=== PATIENT | female | born 1975 | race Caucasian/White ===

== ENCOUNTER 2017-01-11 16:43 | Emergency (ER) | payer SELFPAY ==
[~2017-01-11] VITALS: Ht 165.1 cm; Wt 65.0 kg
[2017-01-11 17:43] LABS: HEMATOCRIT 37.2 % (37.0-47.0); IMMATURE GRANULOCYTES 0.3 % (0.0-1.0); MEAN CELL VOLUME 93.7 fL CALC (80.0-100.0); MEAN CORPUSCULAR HGB 32.7 pG CALC (26.0-32.0); MEAN CORPUSCULAR HGB CONC 34.9 g/L CALC (32.0-36.0); NEUT# 7.9 thou/uL (2.00-7.15); RED BLOOD COUNT 3.97 mill/uL (4.20-5.60); RED CELL DISTRI WIDTH 14.1 % (11.5-15.5)
[2017-01-11 17:53] LABS: ALBUMIN 4.3 g/dL (3.2-5.0); ALKALINE PHOSPHATASE 60 u/l (38-126); ANION GAP 15 (6-22 (CALC)); BILIRUBIN, TOTAL 0.5 mg/dL (0.0-1.4); BUN 12 mg/dL (7-17); BUN/CREATININE RATIO 18 (12-20 (CALC)); CALCIUM 9.5 mg/dL (8.4-10.2); CARBON DIOXIDE 23 mmol/l (22-30); CHLORIDE 105 mmol/l (95-108); CREATININE 0.7 mg/dL (0.5-1.0); GFR > 60 ML/MIN (>=60 (CALC)); GFR FOR AFR.AMER. > 60 ML/MIN (>=60 (CALC)); GLUCOSE 86 mg/dL (65-105); POTASSIUM 3.8 mmol/l (3.5-5.1); SGOT/AST 21 u/l (14-36); SGPT/ALT 21 u/l (9-52); SODIUM 140 mmol/l (137-146); TOTAL PROTEIN 7.8 g/dL (6.3-8.2)
[2017-01-11 18:05] LABS: MYOGLOBIN 22 ng/mL (0 - 62)
[2017-01-11] MEDS ORDERED: ASPIRIN 81 LOW81 MG PO (19:20)
[2017-01-11 19:33] VITALS: BP 120/65
== END 2017-01-11 19:35 | disposition left against medical advice (07) | DRG 313 ==
LOC: ED 16:43
PROVIDERS: Emergency Medicine
DX: R07.9 Chest pain, unspecified (principal); F17.210 Nicotine dependence, cigarettes, uncomplicated; Z91.19 Patient's noncompliance with other medical treatment and regimen; R94.31 Abnormal electrocardiogram [ECG] [EKG]

== ENCOUNTER 2017-02-22 11:21 | Emergency (ER) | payer SELFPAY ==
[~2017-02-22] VITALS: Ht 165.1 cm; Wt 75.0 kg
[~2017-02-22 11:21] MED LIST: ASPIRIN 81 LOW81 MG PO
[2017-02-22] MEDS ORDERED: BENADRYL 50MG C50 MG PO (12:39)
[2017-02-22] MEDS ORDERED: PEPCID20 MG PO (12:39)
[2017-02-22] MEDS ORDERED: MEDDOSEPAK PO (12:39)
[2017-02-22 12:56] VITALS: BP 90/52
== END 2017-02-22 12:56 | disposition home or self-care (01) | DRG 916 ==
LOC: ED 11:21
DX: T78.3XXA Angioneurotic edema, initial encounter (principal); T63.441A Toxic effect of venom of bees, accidental (unintentional), initial encounter; Y92.009 Unspecified place in unspecified non-institutional (private) residence as the place of occurrence of the external cause

== ENCOUNTER 2017-06-12 09:02 | Emergency (ER) | payer SELFPAY ==
[~2017-06-12] VITALS: Ht 165.1 cm; Wt 66.0 kg
[~2017-06-12 09:02] MED LIST changes: +BENADRYL 50MG C50 MG PO; +MEDDOSEPAK PO; +PEPCID20 MG PO
[2017-06-12] MEDS ORDERED: BACTRIM DS1 TAB PO (09:26)
[2017-06-12] MEDS ORDERED: PYRIDIUM200 MG PO (09:26)
[2017-06-12] MEDS ORDERED: DIFLUCAN150 MG PO (09:26)
[2017-06-12 09:58] LABS: URINE BILIRUBIN - DIPSTICK NEGATIVE (NEGATIVE); URINE CLARITY CLEAR; URINE COLOR YELLOW; URINE GLUCOSE - DIPSTICK NEGATIVE (NEGATIVE); URINE KETONE NEGATIVE (NEGATIVE); URINE LEUK ESTERASE TRACE (NEGATIVE); URINE NITRITE - DIPSTICK NEGATIVE (Negative); URINE PH 5.5 (4.5-8.0); URINE PROTEIN - DIPSTICK NEGATIVE (NEG-TRACE); URINE UROBILINOGEN - DIPSTICK 0.2 E.U./dL (0.2)
[2017-06-12 10:01] LABS: URINE BLOOD DIPSTICK TRACE (NEGATIVE)
[2017-06-12 10:02] VITALS: BP 110/60
== END 2017-06-12 10:02 | disposition home or self-care (01) | DRG 690 ==
LOC: ED 09:02
PROVIDERS: Emergency Medicine
DX: N39.0 Urinary tract infection, site not specified (principal); R30.0 Dysuria

== ENCOUNTER 2018-08-31 18:51 | Emergency (ER) | payer SELFPAY ==
[~2018-08-31] VITALS: Ht 165.1 cm; Wt 66.0 kg
[~2018-08-31 18:51] MED LIST changes: +BACTRIM DS1 TAB PO; +DIFLUCAN150 MG PO; +PYRIDIUM200 MG PO
[2018-08-31 19:03] VITALS: BP 115/73
[2018-08-31] MEDS ORDERED: PROVENTIL HFA IN (20:26)
[2018-08-31] MEDS ORDERED: GUAIASORB DM1 ML PO (20:26)
== END 2018-08-31 21:49 | disposition home or self-care (01) | DRG 203 ==
LOC: ED 18:51
DX: J40 Bronchitis, not specified as acute or chronic (principal); J06.9 Acute upper respiratory infection, unspecified; R06.02 Shortness of breath; R05 Cough; F17.210 Nicotine dependence, cigarettes, uncomplicated; R09.81 Nasal congestion

== ENCOUNTER 2022-04-15 11:15 | Emergency (ER) | payer SELFPAY ==
[~2022-04-15] VITALS: Ht 165.1 cm; Wt 70.3 kg
[2022-04-15] VITALS (21 sets, daily range): BP systolic 93–127; BP diastolic 40–86
[~2022-04-15 11:15] MED LIST changes: +GUAIASORB DM1 ML PO; +PROVENTIL HFA IN
[2022-04-15 11:44] LABS: HEMATOCRIT 41.9 % (37.0-47.0); HEMOGLOBIN 13.3 g/dl (12.0-16.0); IMMATURE GRANULOCYTES 0.2 % (0.0-5.0); MEAN CELL VOLUME 97.7 fL CALC (80.0-100.0); MEAN CORPUSCULAR HGB CONC 31.7 g/dL CAL (32.0-36.0); NEUT# 6.51 thou/uL (2.00-7.15); RED BLOOD COUNT 4.29 mill/uL (4.20-5.60); RED CELL DISTRI WIDTH 13.5 % (11.5-15.5)
[2022-04-15 12:03] LABS: ALBUMIN 4.3 g/dL (3.2-5.0); ALKALINE PHOSPHATASE 78 u/l (38-126); ANION GAP 9 (6-22 (CALC)); BILIRUBIN, TOTAL 0.5 mg/dL (0.0-1.4); BUN 18 mg/dL (7-17); BUN/CREATININE RATIO 24 (12-20 (CALC)); CARBON DIOXIDE 24 mmol/l (22-30); CHLORIDE 110 mmol/l (95-108); CREATININE 0.7 mg/dL (0.5-1.0); GFR FOR AFR.AMER. > 60 ML/MIN (>=60 (CALC)); GFR OTHER RACES > 60 ML/MIN (>=60 (CALC)); POTASSIUM 3.9 mmol/l (3.5-5.1); SGOT/AST 17 u/l (14-36); SODIUM 139 mmol/l (137-146); TOTAL PROTEIN 7.3 g/dL (6.3-8.2)
== END 2022-04-15 16:00 | disposition home or self-care (01) | DRG 313 ==
LOC: ED 11:15
PROVIDERS: Family Medicine
DX: R07.9 Chest pain, unspecified (principal); F17.210 Nicotine dependence, cigarettes, uncomplicated